=== PATIENT | male | born 1970 | race Two or more races ===

== ENCOUNTER 2017-12-22 13:47 | Emergency (ER) | payer BC ==
[~2017-12-22] VITALS: Ht 182.9 cm; Wt 86.2 kg
[2017-12-22] MEDS ORDERED: IBUPROFEN 600 MG TABLET PO ONE ×2 (15:12→15:30)
[2017-12-22 15:17] VITALS: BP 131/85
== END 2017-12-22 15:18 | disposition home or self-care (01) ==
LOC: ER 13:49
DX: S06.0X0A Concussion without loss of consciousness, initial encounter (principal); S05.11XA Contusion of eyeball and orbital tissues, right eye, initial encounter; Y04.8XXA Assault by other bodily force, initial encounter; Y93.89 Activity, other specified; Y92.89 Other specified places as the place of occurrence of the external cause; Y99.8 Other external cause status
CPT/HCPCS: A4606; Z7610